=== PATIENT | female | born 1945 | race African-American/Black ===

== ENCOUNTER 2018-06-25 09:28 | Inpatient (IN) | payer OTHER ==
[~2018-06-25] VITALS: Ht 165.1 cm; Wt 66.3 kg
[~2018-06-25 09:28] MED LIST: ASPIRIN81 M3 PO; ENALAPRIL MALE2.5 MG ORAL; GLIPIZIDE5 MG ORAL; HYDROCHLOROTH12.5 M2 ORAL; IBUPROFEN600 MG ORAL; LEVAQUIN500 MG ORAL; METFORMIN HCL1000 M1 ORAL; VIBRAMYCIN100 MG ORAL
[2018-06-25 09:56] LABS: BASOPHILS % (AUTO) 2.7 % (0.0-2.0); EOSINOPHILS % (AUTO) 2.1 % (0.0-3.0); HEMATOCRIT 46.6 % (37.0-47.0); HEMOGLOBIN 15.8 G/DL (12.0-16.0); LYMPHOCYTES % (AUTO) 35.3 % (20.0-45.0); MEAN CORPUSCULAR VOLUME 77 FL (80-99); MONOCYTES % (AUTO) 7.8 % (1.0-10.0); NEUTROPHILS % (AUTO) 52.1 % (45.0-75.0); PLATELET COUNT 349 K/UL (150-450); RED BLOOD COUNT 6.06 M/UL (4.20-5.40); RED CELL DISTRIBUTION WIDTH 11.2 % (11.6-14.8); WHITE BLOOD COUNT 6.4 K/UL (4.8-10.8)
[2018-06-25 09:59] VITALS: BP 155/84
[2018-06-25 10:07] LABS: ANION GAP 10 mmol/L (5-15); BLOOD UREA NITROGEN 12 mg/dL (7-18); CALCIUM 9.9 MG/DL (8.5-10.1); CARBON DIOXIDE 26 MMOL/L (21-32); CHLORIDE 99 MMOL/L (98-107); CREATININE 0.7 MG/DL (0.55-1.30); POTASSIUM 4.1 MMOL/L (3.5-5.1); SODIUM 135 MMOL/L (136-145)
[2018-06-25 10:12] LABS: ALANINE AMINOTRANSFERASE 17 U/L (12-78); ALBUMIN/GLOBULIN RATIO 0.8 (1.0-2.7); ALKALINE PHOSPHATASE 196 U/L (46-116); ASPARTATE AMINO TRANSFERASE 16 U/L (15-37); BILIRUBIN,TOTAL 0.2 MG/DL (0.2-1.0); CHOLESTEROL 179 MG/DL (< 200); HDL CHOLESTEROL 45 MG/DL (40-60); TRIGLYCERIDES 86 MG/DL (30-150)
[2018-06-25 10:18] LABS: APPEARANCE,URINE CLEAR; BILIRUBIN, URINE NEGATIVE (NEGATIVE); COLOR,URINE PALE YELLOW; GLUCOSE, URINE (UA) 3+ (NEGATIVE); KETONES,URINE NEGATIVE (NEGATIVE); LEUKOCYTE ESTERASE ,URINE NEGATIVE (NEGATIVE); NITRITE,URINE NEGATIVE (NEGATIVE); PH,URINE 5 (4.5-8.0); PROTEIN,URINE NEGATIVE (NEGATIVE); UROBILINOGEN,URINE NORMAL MG/DL (0.0-1.0)
--- NOTE | 2018-06-25 10:27 | Diagnostic Imaging Report ---
Indications: Expressive aphasia, code stroke Technique: Spiral acquisitions obtained through the brain. Angled axial and coronal 5 x 5 mm slices were reconstructed. Total dose length product 1393.68 mGycm. CTDI vol(s) 70.38 mGy. Dose reduction achieved using automated exposure control Comparison: None. Findings: Normal size ventricles. There is age-related enlargement of the extra-axial CSF spaces. There is periventricular deep white matter low-attenuation, consistent with chronic ischemic changes. No acute intracranial hemorrhage or edema, mass effect, nor midline shift. There is suggestion of an empty sella. Intact calvarium. Visualized orbits and sinuses are unremarkable. Impression: Chronic and age-related changes Negative for acute intracranial bleed or mass effect Stat code stroke findings phoned to Dr. Caraballo in the emergency room at 1018 on 06/25/[address] scanner at [facility] is accredited by the [employer] and the scans are performed using protocols designed to limit radiation exposure to as low as reasonably achievable to attain images of sufficient resolution adequate for diagnostic evaluation.
--- NOTE | 2018-06-25 11:20 | Emergency Room Report ---
History of Present Illness General Chief Complaint: Stroke Symptoms Source: Patient Present Illness HPI This patient states that yesterday evening she noted that she couldn't remember her ETM pen. She states that since that time she has been having trouble word finding. She states she is unable to form words. She states that she will be thinking about something but cannot say it. She states that she feels the symptoms have worsened and this morning are more severe. She denies headache or neck pain. She denies recent trauma. She denies recent illness. She denies fever or chills. She denies chest pain or shortness of breath. She has no other complaints. Allergies: Coded Allergies: No Known Allergies (Unverified , 12/02/14) Patient History Past Medical History: see triage record, DM, HTN Past Surgical History: none Social History: Reports: smoking; Denies: alcohol use, drug use Last Menstrual Period: na Reviewed Nursing Documentation: PMH: Agreed; PSxH: Agreed Nursing Documentation-PMH Past Medical History: No History, Except For Hx Hypertension: Yes Hx Diabetes: Yes Review of Systems All Other Systems: negative except mentioned in HPI Physical Exam Vital Signs Date Time Temp Pulse Resp B/P (MAP) Pulse Ox O2 Delivery O2 Flow Rate FiO2 06/25/18 09:29 98.1 77 18 186/100 96 Room Air Sp02 EP Interpretation: reviewed, normal General Appearance: no apparent distress, alert, GCS 15, non-toxic Head: normocephalic, atraumatic Eyes: bilateral eye normal inspection, bilateral eye PERRL ENT: hearing grossly normal, normal pharynx, no angioedema, normal voice Neck: full range of motion, supple/symm/no masses Respiratory: chest non-tender, lungs clear, normal breath sounds, no respiratory distress, no retraction, no accessory muscle use, speaking full sentences Cardiovascular #1: regular rate, rhythm, no edema Gastrointestinal: normal bowel sounds, non tender, soft, non-distended, no guarding, no rebound Rectal: deferred Musculoskeletal: back normal, gait/station normal, normal range of motion, non- tender Neurologic: alert, oriented x3, responsive, motor strength/tone normal, sensory intact, other - Difficulty with word finding. Partial expressive aphasia. Psychiatric: judgement/insight normal, mood/affect normal, no suicidal/ homicidal ideation Skin: normal color, no rash, warm/dry, well hydrated Medical Decision Making Diagnostic Impression: Primary Impression: CVA (cerebral vascular accident) ER Course This patient has partial expressive aphasia. She is able to use 2-3 word answers but has difficulty finding words and cannot articulate a complicated sentence. She clearly is word finding but unable to form and express the words. She does have full comprehension. CT of the head showed no acute findings. MRI brain showed ischemic CVA of the posterior parietal and temporal lobes. There was also findings of a possible transverse sinus venous thrombosis. The patient was given oral aspirin and admitted for further evaluation and treatment. Patient was given oral aspirin admitted for CVA/TIA. This patient is critically ill. This patient required complex medical decision- making, aggressive intervention, extensive laboratory workup and monitoring. Critical care time: 40 minutes. Laboratory Tests Test 06/25/18 09:37 06/25/18 10:00 White Blood Count 6.4 K/UL (4.8-10.8) Red Blood Count 6.06 M/UL (4.20-5.40) H Hemoglobin 15.8 G/DL (12.0-16.0) Hematocrit 46.6 % (37.0-47.0) Mean Corpuscular Volume 77 FL (80-99) L Mean Corpuscular Hemoglobin 26.1 PG (27.0-31.0) L Mean Corpuscular Hemoglobin Concent 33.9 G/DL (32.0-36.0) Red Cell Distribution Width 11.2 % (11.6-14.8) L Platelet Count 349 K/UL (150-450) Mean Platelet Volume 7.3 FL (6.5-10.1) Neutrophils (%) (Auto) 52.1 % (45.0-75.0) Lymphocytes (%) (Auto) 35.3 % (20.0-45.0) Monocytes (%) (Auto) 7.8 % (1.0-10.0) Eosinophils (%) (Auto) 2.1 % (0.0-3.0) Basophils (%) (Auto) 2.7 % (0.0-2.0) H Prothrombin Time 10.5 SEC (9.30-11.50) Prothrombin Time INR 1.0 (0.9-1.1) PTT 26 SEC (23-33) Sodium Level 135 MMOL/L (136-145) L Potassium Level 4.1 MMOL/L (3.5-5.1) Chloride Level 99 MMOL/L (98-107) Carbon Dioxide Level 26 MMOL/L (21-32) Anion Gap 10 mmol/L (5-15) Blood Urea Nitrogen 12 mg/dL (7-18) Creatinine 0.7 MG/DL (0.55-1.30) Estimate Glomerular Filtration Rate mL/min (>60) Glucose Level 262 MG/DL (74-106) H Calcium Level 9.9 MG/DL (8.5-10.1) Total Bilirubin 0.2 MG/DL (0.2-1.0) Aspartate Amino Transferase (AST) 16 U/L (15-37) Alanine Aminotransferase (ALT) 17 U/L (12-78) Alkaline Phosphatase 196 U/L (46-116) H Troponin I 0.000 ng/mL (0.000-0.056) Total Protein 8.8 G/DL (6.4-8.2) H Albumin 4.0 G/DL (3.4-5.0) Globulin 4.8 g/dL Albumin/Globulin Ratio 0.8 (1.0-2.7) L Triglycerides Level 86 MG/DL (30-150) Cholesterol Level 179 MG/DL (< 200) LDL Cholesterol 127 mg/dL (<100) H HDL Cholesterol 45 MG/DL (40-60) Cholesterol/HDL Ratio 4.0 (3.3-4.4) Urine Color Pale yellow Urine Appearance Clear Urine pH 5 (4.5-8.0) Urine Specific [place] 1.010 (1.005-1.035) Urine Protein Negative (NEGATIVE) Urine Glucose (UA) 3+ (NEGATIVE) H Urine Ketones Negative (NEGATIVE) Urine Blood Negative (NEGATIVE) Urine Nitrite Negative (NEGATIVE) Urine Bilirubin Negative (NEGATIVE) Urine Urobilinogen Normal MG/DL (0.0-1.0) Urine Leukocyte Esterase Negative (NEGATIVE) EKG Diagnostic Results Rate: normal Rhythm: NSR ST Segments: other - NSST findings. Rhythm Strip Diag. Results EP Interpretation: yes Rate: 70's Rhythm: NSR, no PVC's, no ectopy Chest X-Ray Diagnostic Results Chest X-Ray Diagnostic Results : Chest X-Ray Ordered: Yes # of Views/Limited/Complete: 1 View Indication: Other EP Interpretation: Yes Interpretation: no consolidation, no effusion, no pneumothorax, no acute cardiopulmonary disease Impression: No acute disease Electronically Signed by: Omayra Johnston DO CT/MRI/US Diagnostic Results CT/MRI/US Diagnostic Results : Imaging Test Ordered: CT head Impression No acute findings. Specifically no intracranial bleed, mass effect or edema. See official report. MRI Brain: Impression: Positive for acute right posterior parietal, occipital, temporal infarct. This may be in the middle cerebral or the posterior cerebral artery territory. Multifocal appearance of the infarct suggests embolic etiology Signal within the left transverse sinus, may indicate thrombosis versus sluggish flow No acute hemorrhage or mass effect Chronic and age-related changes, as described Tiny old right cerebellar hemispheric and left midbrain lacunar infarcts Critical value findings phoned to Dr. Caraballo in the emergency room at the time of interpretation Last Vital Signs Date Time Temp Pulse Resp B/P (MAP) Pulse Ox O2 Delivery O2 Flow Rate FiO2 06/25/18 09:59 98.1 73 18 155/84 96 Room Air Disposition: ADMITTED INPATIENT Condition: Serious Referrals: [facility],REFERRING (PCP) Omayra Johnston DO Jun 25, 2018 11:20
--- NOTE | 2018-06-25 12:03 | Diagnostic Imaging Report ---
Indication: Expressive aphasia Technique: sagittal T1 fast spin echo, axial T1 FLAIR, axial T2 FLAIR, axial T2 FS PROPELLER, axial T2* GRE, axial diffusion weighted images. ADC and exponential ADC maps generated Comparison: Head CT of one half hours earlier Findings: There is a cluster of areas of restricted diffusion involving the left posterior parietal cortex, extending to some extent in the deep white matter. There is also slight involvement of the posterior temporal white matter cortex and deep white matter as well as slight extension into the lateral occipital lobe. In retrospect, some cortical low-attenuation is seen in this area on recent CT scan. These areas are associated with increased T2 and decreased T1 signal. No associated hemorrhage. No evidence of acute hemorrhage elsewhere. There is age-related enlargement of the ventricles and extra-axial CSF spaces. There is considerable periventricular deep white matter high T2 signal, consistent with chronic small vessel ischemic change. Tiny old lacunar infarct is seen within the right cerebellar hemisphere. Another is seen within the left midbrain. There is signal within the left transverse sinus on multiple sequences The remaining vascular flow voids are preserved. Visualized orbits and sinuses are unremarkable.. No mass effect nor midline shift. Impression: Positive for acute right posterior parietal, occipital, temporal infarct. This may be in the middle cerebral or the posterior cerebral artery territory. Multifocal appearance of the infarct suggests embolic etiology Signal within the left transverse sinus, may indicate thrombosis versus sluggish flow No acute hemorrhage or mass effect Chronic and age-related changes, as described Tiny old right cerebellar hemispheric and left midbrain lacunar infarcts Critical value findings phoned to Dr. Caraballo in the emergency room at the time of interpretation
[2018-06-25 12:27] VITALS: BP 149/79
[2018-06-25 14:00] VITALS: BP 169/86
[2018-06-25 14:15] VITALS: BP 144/88
[2018-06-25 20:23] VITALS: BP 136/71
[2018-06-25] MEDS: NovoLOG Insulin Flexpen SUBQ SCH (21:00)
--- NOTE | 2018-06-25 22:11 | Consultation ---
Consult Note Consult Note NEUROLOGY CONSULTATION: Full note dictated #[id number] 72 y/o, RH, BF with long H/O HTN and DM. On 06/24/18 she noted some problems with expressing herself. On 06/25/18 the problem got worse and she thus came to the [facility] [place] ON EXAM: Problems with orientation to place. Problems with recent and remote memory. Problems with HCF. Significant mixed aphasia. Right hemiparesis. Globally diminished DTRs - slightly brisker on right. Extensor plantar on right. MRI of brain with patchy infarct in the distribution of the posterior branch of the L-MCA. IMPRESSION: Infarct in the distribution of the posterior branch of the L-MCA most probably due to HTN/DM/Smoking. REC: BP control - goal 120-130 systolic. BS control - Hb A1c goal of < 6% STOP smoking. Carotid duplex. TTE with bubble study. Labs for stroke PT/OT/SLT Carlin Mcclendon M.D., M.S.P.H. Carlin Mcclendon MD Jun 25, 2018 22:11
--- NOTE | 2018-06-25 23:15 | Consultation ---
DATE OF CONSULTATION: 06/25/2018 NEUROLOGY CONSULTATION CONSULTING PHYSICIAN: Carlin Mcclendon M.D. REFERRING PHYSICIAN: Hernando Theodore M.D. HISTORY: Ms. Carmen Saleh is a 72-year-old, right-handed, black lady, who has a long history of hypertension and diabetes mellitus. She was functioning perfectly well until 06/24/2018 when she noted that she was having some problems expressing herself. On 06/25/2018, the problem got much worse and thus she presented to the [facility] Emergency Room. When she came to the emergency room, she was noted to be significantly aphasic and as a result of that was worked up. The CT scan of the brain revealed questionable pathology, but the MRI scan of the brain revealed a definite left brain infarct. She has thus been admitted and this consultation was requested to manage the patient's cerebrovascular disease. The patient, at this point in time, continues to have problems with speech and language. She, however, feels that this problem may be a little better than when she came in. She denies any weakness on one side or the other, numbness on one side or the other, problems with memory, problems with walking, or other neurological symptoms. She also denies any prior history of strokes. PAST MEDICAL HISTORY: Significant for hypertension and diabetes mellitus, which she says are well controlled. FAMILY HISTORY: Nothing significant as per the patient. PERSONAL HISTORY: Home: She lives alone. 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 Habits: She denies the use of alcohol or illicit drugs, but does consume a little less than a pack of cigarettes per day. MEDICATIONS: Present medications include aspirin 81 mg daily and insulin. PHYSICAL EXAMINATION: GENERAL: She is a well-developed and well-nourished black lady, lying in bed, in no acute distress. VITAL SIGNS: Pulse is 71 per minute and regular, blood pressure 136/71 mmHg, respirations 18 per minute, and temperature 97 degrees Fahrenheit. HEAD: Normocephalic and atraumatic. EENT: Examination benign. NECK: No neck rigidity was observed. NEUROLOGIC EXAMINATION: MENTAL STATUS EXAMINATION: She was awake and alert. She was oriented to person, place, and time except for the exact name of the hospital. She was able to recall 3/3 words immediately, but could only remember 1/3 words in 1 minute and 3 minutes even on the third trial. She was able to remember Presidents Trump and Obama with hints, but could not remember presidents prior to that. Her mathematical skills were significantly impaired. Her visuospatial function was also impaired. SPEECH: She had no dysarthria. LANGUAGE: She had problems with comprehension, repetition, naming and expression of language. CRANIAL NERVES EXAMINATION: II: The visual swartz were intact on confrontation testing. III, IV & : The external ocular movements were full and the pupils 3 mm in diameter, equal, round, regular, and reactive to light. V: She had normal facial sensations and the temporales, masseters, and pterygoids functioned normally. VII: She had a definite right seventh central facial paresis. VIII: She was able to hear and had no nystagmus. IX: The palate moved symmetrically on phonation. X: She had no hoarseness of voice. XI: The sternocleidomastoids and trapezii functioned normally. XII: The tongue was in the midline without any fasciculations or atrophy. MOTOR SYSTEM: The tone was normal in all four extremities. Examination of muscle mass revealed no focal wasting. Examination of power revealed G 5/5 power except for G 4+/5 power in the right finger extensors and iliopsoas. SENSORY EXAMINATION: She had intact sensations to pinprick and light touch. She had bilateral agraphesthesia. COORDINATION: She performed well on [id number] and [id number] testing. REFLEXES: 1+ on the right and trace+ on the left at the biceps, triceps, brachioradialis, and knees. 0 at both ankles. The plantar response was extensor on the right and flexor on the left. STANCE: She stood up with support. GAIT: She took a few steps well with support. DIAGNOSTIC IMPRESSION: 1. Ms. Carmen Saleh is a 72-year-old, right-handed, black lady, who has a long history of hypertension, diabetes mellitus, and smoking. On 06/24/2018, she noted some mild problems expressing herself. On 06/25/2018, the problem got much worse and as a result of that she presented to the [facility] Emergency Room. 2. On neurological examination, at this time, she does have problems with orientation, recent and remote memory, higher cognitive function, and a significant mixed aphasia. She also has a right hemiparesis involving the face, upper and lower extremities. The deep tendon reflexes are globally diminished though slightly brisker on the right side compared to the left. She has an extensor plantar response on the right side. 3. Laboratory data obtained thus far have revealed a relatively normal CBC. The chemistry panel revealed borderline low sodium at 135, a blood glucose elevated at 262, a total cholesterol of 179 with an LDL of 127, and HDL of 45. A relatively normal urinalysis and an INR of 1.0. 4. The MRI scan of the brain revealed a patchy infarct in the distribution of the posterior branch of the left middle cerebral artery. 5. The patient's history, neurological examination, laboratory data, and imaging studies are most compatible with an acute infarct in the distribution of the posterior branch of the left middle cerebral artery most probably related to hypertension, diabetes mellitus, and smoking; leading clinically to the significant aphasia, cognitive dysfunction which may or may not be true because of the significant aphasia and right hemiparesis. RECOMMENDATIONS: 1. The patient was given an explanation of the above- mentioned findings. 2. She was told to stop smoking immediately. 3. Her blood pressure should be controlled with a goal of a systolic blood pressure of 120 to 130. 4. The patient's blood sugar should be controlled with a hemoglobin A1c goal of less than 6%. 5. She should be worked up thoroughly for other treatable causes of cerebrovascular disease with carotid duplex, transthoracic echocardiogram with bubble study, and laboratory data. 6. She should be started on a course of physical, occupational and speech and language therapy to rehabilitate her. Thank you for entrusting me with the care of Ms. Saleh. I shall follow her with you. Carlin Mcclendon M.D., M.S.P.H. DR: KIKE JOB#: [id number] TREY
[2018-06-26 01:14] VITALS: BP 168/84
[2018-06-26 04:52] VITALS: BP 153/73
--- NOTE | 2018-06-26 05:30 | Consultation ---
DATE OF CONSULTATION: 06/25/2018 CONSULTING PHYSICIAN: Jc Lr M.D. REQUESTING PHYSICIAN: Hernando Theodore M.D. REASON FOR CONSULTATION: Cardiovascular management in the setting of acute cerebrovascular accident. HISTORY OF PRESENT ILLNESS: This is a 72-year-old female with a history of hypertension and type 2 diabetes mellitus. She has been compliant generally with her medication regimen and diet although for the past 2 days she did note missing her medications. Yesterday, she began having some difficulty expressing herself and finding her words. Today, the symptoms worsened and she came to the emergency room where she was noted to be significantly aphasic. A CT scan of the brain and subsequent MRI of the brain was performed and revealed definite left-sided acute infarction. Since her admission, the patient has somewhat improved with regard to her speech. She has no difficulty with comprehension and is able to assist her daughter with her historical data that I obtained. PAST MEDICAL HISTORY: Type 2 diabetes mellitus and hypertension. She denies any known history of irregular heartbeat. FAMILY HISTORY: Noncontributory. SOCIAL HISTORY: No history of alcohol or illicit drug use. She smokes approximately a pack of cigarettes daily for most of her adult life. MEDICATIONS: Prior to admission, metformin, enalapril, and aspirin (up until 06/24/2018 as described above). ALLERGIES: None known. REVIEW OF SYSTEMS: A 10-point review of systems completed. All systems negative other than noted above. PHYSICAL EXAMINATION: VITAL SIGNS: Blood pressure 136/71, pulse 71, respiratory rate 18, and afebrile. Monitored rhythm, sinus. GENERAL: Awake and alert, in no acute distress. HEENT: Conjunctivae are pink. Oropharynx clear. NECK: Supple. No bruits. Jugular venous pressure normal. LUNGS: Clear. CARDIAC: Regular rhythm and rate. Normal S1, S2 with a fourth heart sound. No murmur. BREASTS: Without masses. ABDOMEN: Soft and nontender. EXTREMITIES: Good pulses. No edema. LABORATORY DATA: EKG reveals sinus rhythm and nonspecific ST-T wave changes. IMPRESSION: 1. Acute cerebrovascular accident. 2. Hypertensive heart disease. 3. Type 2 diabetes mellitus. 4. Nicotine abuse. PLAN: Cardiac monitoring. Smoking cessation. Titrate antihypertensive to systolic pressure in the range of 120 to 130. Cardiac monitoring to evaluate her intermittent atrial arrhythmias, which would warrant anticoagulation in the future. Echocardiogram, bubble study, and carotid duplex scan. Continue the anti-platelet therapy. Jc Lr M.D. DR: CORINA JOB#: [id number] CC:
[2018-06-26] MEDS: NovoLOG Insulin Flexpen SUBQ SCH ×4 (06:09→21:04)
[2018-06-26 07:05] LABS: EOSINOPHILS % (AUTO) 2.2 % (0.0-3.0); HEMATOCRIT 40.9 % (37.0-47.0); HEMOGLOBIN 14.2 G/DL (12.0-16.0); LYMPHOCYTES % (AUTO) 42.1 % (20.0-45.0); MEAN CORPUSCULAR VOLUME 76 FL (80-99); MONOCYTES % (AUTO) 7.5 % (1.0-10.0); NEUTROPHILS % (AUTO) 46.3 % (45.0-75.0); PLATELET COUNT 343 K/UL (150-450); RED BLOOD COUNT 5.37 M/UL (4.20-5.40); RED CELL DISTRIBUTION WIDTH 11.2 % (11.6-14.8); WHITE BLOOD COUNT 6.4 K/UL (4.8-10.8)
[2018-06-26 07:49] LABS: ALANINE AMINOTRANSFERASE 21 U/L (12-78); ALBUMIN 3.4 G/DL (3.4-5.0); ALBUMIN/GLOBULIN RATIO 0.8 (1.0-2.7); ALKALINE PHOSPHATASE 153 U/L (46-116); ANION GAP 8 mmol/L (5-15); ASPARTATE AMINO TRANSFERASE 13 U/L (15-37); BILIRUBIN,TOTAL 0.4 MG/DL (0.2-1.0); BLOOD UREA NITROGEN 12 mg/dL (7-18); CALCIUM 9.5 MG/DL (8.5-10.1); CARBON DIOXIDE 27 MMOL/L (21-32); CHLORIDE 103 MMOL/L (98-107); CREATININE 0.7 MG/DL (0.55-1.30); POTASSIUM 3.6 MMOL/L (3.5-5.1); SODIUM 138 MMOL/L (136-145)
[2018-06-26 08:00] VITALS: BP 150/79
[2018-06-26] MEDS: Aspirin Baby 81mg ORAL SCH (08:49)
[2018-06-26 12:00] VITALS: BP 146/78
--- NOTE | 2018-06-26 15:32 | Cardiology Report ---
APPROVED REPORT EXAM: Two-dimensional and M-mode echocardiogram with Doppler and color Doppler. INDICATION CAD with Bubble study M-Mode DIMENSIONS IVSd0.9 (0.7-1.1cm)Left Atrium (MM)2.7 (1.6-4.0cm) LVDd3.9 (3.5-5.6cm)Aortic Root2.9 (2.0-3.7cm) PWd1.1 (0.7-1.1cm)Aortic Cusp Exc.1.7 (1.5-2.0cm) LVDs2.6 (2.5-4.0cm) PWs1.3 cm NEGATIVE BUBBLE STUDY: with 10cc intravenous injection of agitated saline, there is no communication between the right side and the left side of the heart. No indication of ASD and VSD. Normal left ventricular chamber size, normal systolic function and wall motion. Left ventricular ejection fraction estimated to be 65-70%. No evidence of left ventricular hypertrophy. No evidence of pericardial effusion. All other cardiac chamber sizes are within normal limits. Focal aortic valve sclerosis with adequate cusp excursion. Thickened mitral valve leaflets with normal excursion. Mitral annulus and aortic root calcification. Pulmonic valve not well visualized. Normal tricuspid valve structure. IVC at normal size with physiologic collapse. A color flow and spectral Doppler study was performed and revealed: Trace mitral regurgitation. Mitral diastolic velocities suggest reduced left ventricular relaxation c/w mild LV diastolic dysfunction (Grade I). Trace tricuspid regurgitation. Tricuspid systolic velocities suggests peak right ventricular systolic pressure of 15 mmHg.
[2018-06-26 16:00] VITALS: BP 124/83
--- NOTE | 2018-06-26 16:02 | Cardiology Report ---
APPROVED REPORT EKG Measurement Heart [id number] Normal sinus rhythm Nonspecific T wave abnormality Abnormal ECG
--- NOTE | 2018-06-26 17:30 | History and Physical Report ---
DATE OF ADMISSION: 06/25/2018 HISTORY OF PRESENT ILLNESS: This is a 72-year-old female, who came to the hospital yesterday with complaints of expressing her words. She was seen and worked up in the ER and found to have acute CVA. Imaging studies were reviewed carefully and noted that she has acute right posterior parietal occipital and temporal infarct, this is possibly in the territory of the middle cerebral and posterior cerebral artery. Initial concern by the radiologist that this may be embolic in nature. The patient was seen subsequently by Neurology, Dr. Carlin Mcclendon who diagnosed her as having aphasia with right hemiparesis. Blood pressure management and blood sugar management was initiated as well as tobacco cessation. At this time, the patient feels that she is better. PAST MEDICAL HISTORY: Diabetes mellitus, hypertension, chronic tobacco use. SOCIAL HISTORY: She admits to tobacco use. Denies substance abuse or alcohol. MEDICATIONS: Include metformin, enalapril, aspirin. ALLERGIES: None. REVIEW OF SYSTEMS: The patient denies any headaches, hematemesis, melena, or hematochezia. PHYSICAL EXAMINATION: GENERAL: Reveals a 72-year-old female. HEENT: Unremarkable. LUNGS: Clear breath sounds bilaterally. HEART: Normal heart sounds. ABDOMEN: Soft. NEUROLOGIC: She has mild right upper extremity weakness. She has mild expressive aphasia. Apart from that, she has a normal examination. I note that Dr. Mcclendon has documented grade 4/5 power in right finger extensors and iliopsoas. LABORATORY DATA: Lab testing is unremarkable with normal CBC and BMP. Glucose 232. Alkaline phosphatase 153. Troponin negative. Coags are negative. Urinalysis is negative. Imaging study as discussed above. IMPRESSION: 1. Acute CVA. 2. Hypertension. 3. Smoker. 4. Diabetes mellitus. DISCUSSION: Admitted to the hospital. We will initiate aspirin therapy. Cardiology and neuro consults have been obtained. Blood pressure management. Glucose management. Currently blood pressure is 150/70 which is appropriate. We will follow as assistant associate professor. Await completion of workup. Hernando Theodore M.D. DR: Chris JOB#: [id number] CC:
[2018-06-26 20:00] VITALS: BP 156/89
--- NOTE | 2018-06-26 21:21 | Neurology Progress Note ---
Interim History Interim History Interim History Ms. Saleh feels much better. She is able to talk better. She has also regained a lot of her strength. She denies any new neurologic symptoms. The mind is clear. She has been able to eat well. She has been able to walk well. Review of Systems Neuro Review of Systems Benign. Objective Physical Exam Last Vital Signs Date Time Temp Pulse Resp B/P (MAP) Pulse Ox O2 Delivery O2 Flow Rate FiO2 06/26/18 16:00 97.7 84 20 124/83 (97) 95 06/26/18 09:00 Room Air Laboratory Tests Test 06/25/18 23:05 06/26/18 06:30 06/26/18 13:22 Erythrocyte Sedimentation Rate 16 MM/HR (0-30) Hemoglobin A1c 9.7 % (4.3-6.0) H Thyroid Stimulating Hormone (TSH) 0.903 uiU/mL (0.358-3.740) Rapid Plasma Reagin Pending White Blood Count 6.4 K/UL (4.8-10.8) Red Blood Count 5.37 M/UL (4.20-5.40) Hemoglobin 14.2 G/DL (12.0-16.0) Hematocrit 40.9 % (37.0-47.0) Mean Corpuscular Volume 76 FL (80-99) L Mean Corpuscular Hemoglobin 26.4 PG (27.0-31.0) L Mean Corpuscular Hemoglobin Concent 34.6 G/DL (32.0-36.0) Red Cell Distribution Width 11.2 % (11.6-14.8) L Platelet Count 343 K/UL (150-450) Mean Platelet Volume 6.9 FL (6.5-10.1) Neutrophils (%) (Auto) 46.3 % (45.0-75.0) Lymphocytes (%) (Auto) 42.1 % (20.0-45.0) Monocytes (%) (Auto) 7.5 % (1.0-10.0) Eosinophils (%) (Auto) 2.2 % (0.0-3.0) Basophils (%) (Auto) 2.0 % (0.0-2.0) Sodium Level 138 MMOL/L (136-145) Potassium Level 3.6 MMOL/L (3.5-5.1) Chloride Level 103 MMOL/L (98-107) Carbon Dioxide Level 27 MMOL/L (21-32) Anion Gap 8 mmol/L (5-15) Blood Urea Nitrogen 12 mg/dL (7-18) Creatinine 0.7 MG/DL (0.55-1.30) Estimat Glomerular Filtration Rate mL/min (>60) Glucose Level 232 MG/DL (74-106) H Uric Acid 3.3 MG/DL (2.6-7.2) Calcium Level 9.5 MG/DL (8.5-10.1) Total Bilirubin 0.4 MG/DL (0.2-1.0) Aspartate Amino Transf (AST/SGOT) 13 U/L (15-37) L Alanine Aminotransferase (ALT/SGPT) 21 U/L (12-78) Alkaline Phosphatase 153 U/L (46-116) H Troponin I 0.002 ng/mL (0.000-0.056) Pro-B-Type Natriuretic Peptide 140 pg/mL (0-125) H Total Protein 7.6 G/DL (6.4-8.2) Albumin 3.4 G/DL (3.4-5.0) Globulin 4.2 g/dL Albumin/Globulin Ratio 0.8 (1.0-2.7) L Vitamin B12 Level 271 PG/ML (193-986) Folate 10.4 NG/ML (8.6-58.9) Urine Opiates Screen Negative (NEGATIVE) Urine Barbiturates Screen Negative (NEGATIVE) Phencyclidine (PCP) Screen Negative (NEGATIVE) Urine Amphetamines Screen Negative (NEGATIVE) Urine Benzodiazepines Screen Negative (NEGATIVE) Urine Cocaine Screen Negative (NEGATIVE) Urine Marijuana (THC) Screen Negative (NEGATIVE) Neurologic Exam Objective PHYSICAL EXAMINATION: GENERAL: She is a well-developed and well-nourished black lady, lying in bed, in no acute distress. HEAD: Normocephalic and atraumatic. EENT: Examination benign. NECK: No neck rigidity was observed. NEUROLOGIC EXAMINATION: MENTAL STATUS EXAMINATION: She was awake and alert. She was oriented to person, place, and time. She was able to recall 3/3 words immediately, but could only remember 2/3 words in 1 minute and 3 minutes. She was able to remember Presidents Trump and Obama but could not remember presidents prior to that. Her mathematical skills were good. Her visuospatial function was also good. SPEECH: She had no dysarthria. LANGUAGE: She had mild problems with repetition, naming and expression of language. CRANIAL NERVES EXAMINATION: II: The visual swartz were intact on confrontation testing. III, IV & : The external ocular movements were full and the pupils 3 mm in diameter, equal, round, regular, and reactive to light. V: She had normal facial sensations and the temporales, masseters, and pterygoids functioned normally. VII: She had a mild right seventh central facial paresis. VIII: She was able to hear and had no nystagmus. IX: The palate moved symmetrically on phonation. X: She had no hoarseness of voice. XI: The sternocleidomastoids and trapezii functioned normally. XII: The tongue was in the midline without any fasciculations or atrophy. MOTOR SYSTEM: The tone was normal in all four extremities. Examination of muscle mass revealed no focal wasting. Examination of power revealed G 5/5 power. SENSORY EXAMINATION: She had intact sensations to pinprick and light touch. COORDINATION: She performed well on [id number] and qjed-dy-jaai testing. REFLEXES: 1+ on the right and trace+ on the left at the biceps, triceps, brachioradialis, and knees. 0 at both ankles. The plantar responses were flexor bilaterally. STANCE: She stood up with contact guard. GAIT: She took a few steps well with contact guard. Impression/Recommendations Diagnostic Impression 1. Ms. Carmen Saleh is a 72-year-old, right-handed, black lady, who has a long history of hypertension, diabetes mellitus, and smoking. On 06/24/2018, she noted some mild problems expressing herself. On 06/25/2018, the problem got much worse and as a result of that she presented to the [facility]. 2. She feels much better. She is able to talk better. She has also regained a lot of her strength. She denies any new neurologic symptoms. The mind is clear. She has been able to eat well. She has been able to walk well. 3. On neurological examination, at this time, she does have problems with orientation, and recent and remote memory. Her aphasia has improved and is now more expressive. She has a mild right VII central paresis but the right upper and lower extremity paresis has resolved. The deep tendon reflexes are globally diminished though slightly brisker on the right side compared to the left. The plantar responses are now flexor bilaterally. 4. Laboratory data on my initial evaluation revealed a relatively normal CBC. The chemistry panel revealed borderline low sodium at 135, a blood glucose elevated at 262, a total cholesterol of 179 with an LDL of 127, and HDL of 45. A relatively normal urinalysis and an INR of 1.0. 5. The MRI scan of the brain revealed a patchy infarct in the distribution of the posterior branch of the left middle cerebral artery. 6. The echocardiogram with bubble study was normal. 7. The patient's history, neurological examination, laboratory data, and imaging studies are most compatible with an acute infarct in the distribution of the posterior branch of the left middle cerebral artery most probably related to hypertension, diabetes mellitus, and smoking; leading clinically to the aphasia, cognitive dysfunction and right hemiparesis - which are improving. Recommendations 1. Continue present management. 2. Stop smoking immediately. 3. Her blood pressure should be controlled with a goal of a systolic blood pressure of 120 to 130. 4. The patient's blood sugar should be controlled with a hemoglobin A1c goal of less than 6%. 5. Speech and language therapy to rehabilitate her. Carlin Mcclendon M.D., M.S.P.H. Carlin Mcclendon MD Jun 26, 2018 21:21
[2018-06-27] VITALS: BP 148/77
--- NOTE | 2018-06-27 02:45 | Progress Note ---
DATE: 06/26/2018 CARDIOLOGY PROGRESS NOTE SUBJECTIVE: The patient is feeling better. She is able to talk. She has been able to eat. She has been able to ambulate. She has not complained of any new symptoms. OBJECTIVE: VITAL SIGNS: Afebrile. Blood pressure 124/83, pulse 84, and respirations 20. LUNGS: Clear. CARDIAC: Regular. ABDOMEN: Soft. No edema. LABORATORY AND IMAGING DATA: Monitored sinus with no ectopy. Urine tox screen negative. B12 271. Folate normal. TSH normal. Natriuretic peptide normal. Troponin negative. TSH 0.9. Glucose 232. Echocardiogram revealed no shunting or indication of ASD or VSD. Normal ejection fraction and no significant valvular disease or pulmonary hypertension. LDL cholesterol 127. HDL 45. IMPRESSION: 1. Acute cerebrovascular accident. 2. Hypertension. No signs of cardioembolic source. 3. Mild dyslipidemia. PLAN: No indication for anticoagulation. Continue antiplatelet therapy. Add statin drug. Jc Lr M.D. DR: FLORENCE JOB#: [id number] CC:
[2018-06-27 04:00] VITALS: BP 140/77
[2018-06-27] MEDS: NovoLOG Insulin Flexpen SUBQ SCH ×2 (06:44→11:30)
[2018-06-27 08:00] VITALS: BP 157/78
[2018-06-27] MEDS: Aspirin Baby 81mg ORAL SCH (08:36)
--- NOTE | 2018-06-27 09:37 | Pulmonology Progress Note ---
Assessment/Plan Assessment/Plan IMPRESSION: 1. Acute CVA. 2. Hypertension. 3. Smoker. 4. Diabetes mellitus. DISCUSSION: Continue aspirin therapy. Cardiology and neuro consults have been obtained. ECHO negative (bubble study negative) DC home with outpt OT PT Hernando Theodore M.D. Subjective Interval Events: Doing well Constitutional: Reports: no symptoms HEENT: Repors: no symptoms Respiratory: Reports: no symptoms Cardiovascular: Reports: no symptoms Gastrointestinal/Abdominal: Reports: no symptoms Genitourinary: Reports: no symptoms Neurologic: Reports: no symptoms Allergies: Coded Allergies: No Known Allergies (Unverified , 12/02/14) Objective Last 24 Hour Vital Signs Date Time Temp Pulse Resp B/P (MAP) Pulse Ox O2 Delivery O2 Flow Rate FiO2 06/27/18 08:00 97.5 75 20 157/78 (104) 98 06/27/18 04:00 66 06/27/18 04:00 97.0 64 18 140/77 (98) 96 06/27/18 00:00 70 06/27/18 00:00 97.5 67 22 148/77 (100) 99 06/26/18 21:00 Room Air 06/26/18 20:00 67 06/26/18 20:00 98.1 73 20 156/89 (111) 96 06/26/18 16:00 97.7 84 20 124/83 (97) 95 06/26/18 16:00 74 06/26/18 12:00 77 06/26/18 12:00 97.8 67 21 146/78 (100) 97 Intake and Output 06/26/18 06/27/18 19:00 07:00 Intake Total 500 ml 200 ml Balance 500 ml 200 ml Intake Oral 500 ml 200 ml # Voids 2 General Appearance: no acute distress HEENT: normocephalic Respiratory/Chest: chest wall non-tender, lungs clear Cardiovascular: normal peripheral pulses, normal rate Abdomen: normal bowel sounds Laboratory Tests 06/26/18 13:22: Urine Opiates Screen Negative, Urine Barbiturates Screen Negative, Phencyclidine (PCP) Screen Negative, Urine Amphetamines Screen Negative, Urine Benzodiazepines Screen Negative, Urine Cocaine Screen Negative, Urine Marijuana (THC) Screen Negative Current Medications Medications (Trade) Dose Ordered Sig/Mariella Route PRN Reason Start Time Stop Time Status Last Admin Dose Admin Aspirin (ASA) 81 mg DAILY ORAL 06/26/18 09:00 07/26/18 08:59 06/27/18 08:36 Dextrose (Dextrose 50%) 25 ml Q30M PRN IV Hypoglycemia 06/25/18 16:45 07/25/18 16:44 Dextrose (Dextrose 50%) 50 ml Q30M PRN IV Hypoglycemia 06/25/18 16:45 07/25/18 16:44 Insulin Aspart (NovoLOG) BEFORE MEALS AND HS SUBQ 06/25/18 21:00 07/25/18 20:59 06/27/18 06:44 Pravastatin Sodium (Pravachol) 40 mg BEDTIME ORAL 06/27/18 21:00 07/27/18 20:59 Sodium Chloride 1,000 ml @ 100 mls/hr Q10H IV 06/25/18 18:00 07/25/18 17:59 06/27/18 01:01 Hernando Theodore MD Jun 27, 2018 09:37
[2018-06-27] MEDS ORDERED: LIPITOR40 MG ORAL (09:40)
--- NOTE | 2018-06-27 22:00 | Progress Note ---
DATE: 06/27/2018 CARDIOLOGY PROGRESS NOTE SUBJECTIVE: The patient is improved with regards to speech. She has some memory issues. OBJECTIVE: VITAL SIGNS: Blood pressure 140/77 to 157/78, heart rate 64 to 75, respiratory rate 20, and afebrile. Monitored rhythm, sinus. No atrial ectopy. LUNGS: Clear. CARDIAC: Regular. Normal S1, S2 with a fourth heart sound. ABDOMEN: Soft. EXTREMITIES: No edema. NEUROLOGIC: Reveals mild aphasia. No obvious motor deficits. LABORATORY DATA: Labs reviewed. IMPRESSION: 1. Acute cerebrovascular accident. 2. Hypertensive heart disease. 3. Stable cardiac rhythm. 4. Negative 2D echo bubble study with no signs of cardioembolic source. 5. Mild dyslipidemia. 6. Smoking/nicotine addiction. PLAN: 1. No anticoagulation indicated. 2. Continue anti-platelet therapy. 3. Low-dose statin drug. 4. Avoid tighter blood pressure control presently. 5. Reassess as an outpatient. 6. Continue current cardiovascular regimen. 7. Physical, occupational, and speech therapies. 8. Smoking cessation stressed. Jc Lr M.D. DR: KAMILLA JOB#: [id number] CC:
--- NOTE | 2018-06-28 13:15 | Discharge Summary ---
Discharge Summary Discharge Summary _ DATE OF ADMISSION: 06/25/2018 DATE OF DISCHARGE: 06/27/2018 DISCHARGED BY: Dr. Hernando Theodore CONSULTANTS: Dr. Jc Mcclendon BRIEF HOSPITAL COURSE: Patient is a 72-year-old female, who came to the hospital with complaints of having trouble with word finding. She was unable to form words. Symptoms had worsened in the morning. She denied headache or neck pain. She denied any recent illness. No head trauma. She denied of chest pain or shortness of breath. She has medical history significant for diabetes and hypertension. On evaluation at the ED, the was found to have acute CVA. Imaging studies were reviewed carefully and noted that she has acute right posterior parietal occipital and temporal infarct, this is possibly in the territory of the middle cerebral and posterior cerebral artery. Initial concern by the radiologist that this may be embolic in nature. The patient was seen subsequently by Neurology, Dr. Carlin Mcclendon who diagnosed her as having aphasia with right hemiparesis. Blood pressure management and blood sugar management was initiated as well as tobacco cessation. She underwent neuro evaluation.The MRI scan of the brain revealed a patchy infarct in the distribution of the posterior branch of the left middle cerebral artery.The echocardiogram with bubble study was normal. There was no cardioembolic source noted. The patient's history, neurological examination, laboratory data, and imaging studies are most compatible with an acute infarct in the distribution of the posterior branch of the left middle cerebral artery most probably related to hypertension, diabetes mellitus, and smoking; leading clinically to the aphasia , cognitive dysfunction and right hemiparesis - which are improving. She was given antiplatelet therapy. No indication for anticoagulation. She was given PT and OT.She was eventually discharged home with home health. FINAL DIAGNOSES: 1. Acute CVA. 2. Hypertension. 3. Smoker. 4. Diabetes mellitus. DISPOSITION: DC with home health. DISCHARGE MEDICATIONS: Refer to Discharge Medication List. DISCHARGE INSTRUCTIONS: Follow-up in a week. I have been assigned to dictate discharge summary on this account, and I was not involved in the patient's management. Adriana Millan NP Jun 28, 2018 13:15
== END 2018-06-27 12:00 | disposition home health service (06) | DRG 65 ==
LOC: EMR 10:20 → 2E 13:24 → EDBEDREQ 14:22 → OBSVTOIN 14:38
DX: I63.89 Other cerebral infarction (principal); G81.91 Hemiplegia, unspecified affecting right dominant side; R47.01 Aphasia; R41.89 Other symptoms and signs involving cognitive functions and awareness; E11.9 Type 2 diabetes mellitus without complications; F17.200 Nicotine dependence, unspecified, uncomplicated; Z79.84 Long term (current) use of oral hypoglycemic drugs; I11.9 Hypertensive heart disease without heart failure; E78.5 Hyperlipidemia, unspecified
CPT/HCPCS: 36415; 70450; 70551; 80053; 80061; 80307; 81003; 82607; 82746; 82962; 83036; 83880; 84443; 84484; 84550; 85025; 85610; 85651; 85730; 86592; 93005; 93306; 93880; 96360; 99291; J1815